=== PATIENT | female | born 1965 | race American Indian/Alaskan Native ===

== ENCOUNTER 2019-11-08 14:02 | Emergency (ER) | payer BC ==
--- NOTE | 2019-11-08 14:12 | Event Note ---
ED Screening Note ED Screening Note: Hx of RA, asthma, concern for asthma attack and sinus infection, recently moved from [place], has been without asthma medications This initial assessment/diagnostic orders/clinical plan/treatment(s) is/are subject to change based on patients health status, clinical progression and re- assessment by fellow clinical providers in the ED. Further treatment and workup at subsequent clinical providers discretion. Patient/guardian urged not to elope from the ED as their condition may be serious if not clinically assessed and managed. Initial orders include: to treatment room
[2019-11-08 14:14] VITALS: BP 146/84
[2019-11-08] MEDS ORDERED: dexAMETHasone 20 MG/5 ML VIAL IV ONE (15:24)
[2019-11-08] MEDS ORDERED: ALBUTEROL 2.5 MG/3 ML NEBU IH ONE (15:24)
[2019-11-08] MEDS ORDERED: IPRATROPIUM 0.02% NEBU 2.5 ML IH ONE (15:24)
[2019-11-08] MEDS ORDERED: SODIUM CHLORIDE 0.9% 1000 ML 1,000 ML IV ONE (15:24)
--- NOTE | 2019-11-08 15:35 | Emergency Department Report ---
Minor Respiratory - HPI Chief Complaint: Upper Respiratory Infection Stated Complaint: CELINE/SINUS INFECTION Time Seen by Provider: 11/08/19 15:18 Duration: 4 Days Minor Respiratory: Yes Rhinorrhea, Yes Able to Tolerate Fluids, Yes Cough, Yes Shortness of Breath, No Sore Throat, No Ear Pain, No Sick Contacts, No Hemoptysis, No Chest Pain, No Fever Other History: 54-year-old female presents to the emergency room complaining of sinus infection with lots of mucus. Patient complains of nasal congestion wheezing mild cough. Patient states that she has been using a [place] pot and has taken [id number] Zyrtec's x1 dose. Patient denies any headache but does admit to yellow mucus. Patient reports she is ran out of her Symbicort. ED Review of Systems ROS: Stated complaint: CELINE/SINUS INFECTION Other details as noted in HPI Comment: All other systems reviewed and negative ED Past Medical Hx - Past Medical History Hx Asthma: Yes Additional medical history: " BAD ALLERGY" - Surgical History Additional Surgical History: HYSTO - Social History Smoking Status: Never Smoker Substance Use Type: None - Medications Home Medications: Home Medications Medication Instructions Recorded Confirmed Last Taken Type Budesonide/Formoterol Fumarate 10.2 gm IH QDAY #1 hfa.aer.ad 11/08/19 Unknown Rx [Symbicort 160-4.5 Mcg Inhaler] predniSONE [Deltasone] 20 mg PO QDAY #4 tab 11/08/19 Unknown Rx Minor Respiratory Exam - Exam General: Vital signs noted. No distress. Alert and acting appropriately. HEENT: Yes Moist Mucous Membranes, No Pharyngeal Erythema, No Pharyngeal Exuda bobby, No Rhinorrhea, No Conjuctival Injection, No Frontal Tenderness, No Maxillary Tenderness Ear: Neither TM Bulge, Neither TM Erythema, Neither EAC Pain, Neither EAC Discharge Neck: Yes Supple, No Adenopathy Lungs: Yes Wheezes, Yes Ronchi Heart: Yes Regular, No Murmur Abdomen: Yes Normal Bowel Sounds, No Tenderness, No Peritoneal Signs Skin: No Rash, No Edema Neurologic: Alert and oriented, no deficits. Musculoskeletal: Unremarkable. ED Course Vital Signs 11/08/19 14:11 Temperature 98.3 F Pulse Rate 90 Respiratory 22 Rate Blood Pressure 146/84 O2 Sat by Pulse 98 Oximetry ED Medical Decision Making - Medical Decision Making 54-year-old female presents to the emergency room complaining of sinus infection with lots of mucus. Patient complains of nasal congestion wheezing mild cough. Patient states that she has been using a [place] pot and has taken [id number] Zyrtec's x1 dose. Patient denies any headache but does admit to yellow mucus. Patient reports she is ran out of her Symbicort. Orders have been placed for IV, normal saline, Atrovent 0.5 albuterol 5 dexamethasone 10 mg IV. Aspiratory therapy has been called. Critical care attestation.: If time is entered above; I have spent that time in minutes in the direct care of this critically ill patient, excluding procedure time. ED Disposition Clinical Impression: Asthma Disposition: DC-01 TO HOME OR SELFCARE Is pt being admited?: No Does the pt Need Aspirin: No Condition: Stable Instructions: Asthma (ED), Reactive Airways Disease (ED) Prescriptions: predniSONE [Deltasone] 20 mg PO QDAY #4 tab Budesonide/Formoterol Fumarate [Symbicort 160-4.5 Mcg Inhaler] 10.2 gm IH QDAY #1 hfa.aer.ad Referrals: JEFFREY ANGUIANO MD [Staff Physician] - 3-5 Days
== END 2019-11-08 17:27 | disposition home or self-care (01) ==
LOC: ED 14:02
DX: J45.909 Unspecified asthma, uncomplicated (principal)
CPT/HCPCS: 94640; 96374; 99283; J1100; J7030; 94644

== ENCOUNTER 2019-12-04 11:38 | Outpatient (CLI) | payer BC ==
[2019-12-04 12:38] LABS: Hemolysis Index 154
[2019-12-04 12:55] LABS: Alanine Aminotransferase TNR units/L (7-56); Albumin TNR g/dL (3.9-5); BUN/Creatinine Ratio TNR; Blood Urea Nitrogen TNR mg/dL (7-17); Calcium TNR mg/dL (8.4-10.2)
[2019-12-04 12:56] LABS: Chol/HDL Ratio TNR %; HDL Cholesterol TNR mg/dL (40-59); LDL Cholesterol,Direct TNR mg/dL (50-130)
[2019-12-04 13:12] LABS: Alanine Aminotransferase 14 units/L (7-56); Albumin 4.4 g/dL (3.9-5); BUN/Creatinine Ratio 19; Blood Urea Nitrogen 13 mg/dL (7-17); Calcium 9.9 mg/dL (8.4-10.2); HDL Cholesterol 80 mg/dL (40-59); Hemolysis Index 3; LDL Cholesterol,Direct 133 mg/dL (50-130)
== END 2019-12-04 11:39 | disposition home or self-care (01) ==
LOC: LAB 11:38
PROVIDERS: ATTEND Internal Medicine
DX: Z13.1 Encounter for screening for diabetes mellitus (principal); Z00.00 Encounter for general adult medical examination without abnormal findings; Z13.220 Encounter for screening for lipoid disorders
CPT/HCPCS: 36415; 80053; 80061; 82465; 82607; 83036; 83718; 83721; 84443; 84478

== ENCOUNTER 2020-07-05 14:09 | Emergency (ER) | payer BC ==
[2020-07-05 14:15] VITALS: BP 137/80
[2020-07-05] MEDS ORDERED: NEOMY 3.5 MG/POLY B 10,000 UNITS/HC 10 MG/ML (OTIC) SUSP 10 ML AU ONE (14:22)
--- NOTE | 2020-07-05 14:24 | Emergency Department Report ---
ED ENT HPI - General Chief complaint: Earache Stated complaint: EAR ACHE Time Seen by Provider: 07/05/20 14:18 Source: patient Mode of arrival: Ambulatory Limitations: No Limitations - History of Present Illness MD complaint: ear pain Onset/Timin -: week(s) Location: R ear, L ear Severity scale (0 -10): 10 Quality: stabbing Improves with: none Associated Symptoms: discharge from ear - Related Data Previous Rx's Medication Instructions Recorded Last Taken Type Budesonide/Formoterol Fumarate 10.2 gm IH QDAY #1 hfa.aer.ad 11/08/19 Unknown Rx [Symbicort 160-4.5 Mcg Inhaler] predniSONE [Deltasone] 20 mg PO QDAY #4 tab 11/08/19 Unknown Rx Allergies Allergy/AdvReac Type Severity Reaction Status Date / Time aspirin Allergy Unknown Verified 07/05/20 14:26 ED Dental HPI - General Chief complaint: Earache Stated complaint: EAR ACHE Time Seen by Provider: 07/05/20 14:18 Source: patient Mode of arrival: Ambulatory Limitations: No Limitations - Related Data Previous Rx's Medication Instructions Recorded Last Taken Type Budesonide/Formoterol Fumarate 10.2 gm IH QDAY #1 hfa.aer.ad 11/08/19 Unknown Rx [Symbicort 160-4.5 Mcg Inhaler] predniSONE [Deltasone] 20 mg PO QDAY #4 tab 11/08/19 Unknown Rx Allergies Allergy/AdvReac Type Severity Reaction Status Date / Time aspirin Allergy Unknown Verified 07/05/20 14:26 ED Review of Systems ROS: Stated complaint: EAR ACHE Other details as noted in HPI Comment: All other systems reviewed and negative ED Past Medical Hx - Past Medical History Previous Medical History?: Yes Hx Asthma: Yes Additional medical history: " BAD ALLERGY" - Surgical History Past Surgical History?: Yes Additional Surgical History: HYSTO - Social History Smoking Status: Current Some Day Smoker - Medications Home Medications: Home Medications Medication Instructions Recorded Confirmed Last Taken Type Budesonide/Formoterol Fumarate 10.2 gm IH QDAY #1 hfa.aer.ad 11/08/19 Unknown Rx [Symbicort 160-4.5 Mcg Inhaler] predniSONE [Deltasone] 20 mg PO QDAY #4 tab 11/08/19 Unknown Rx ED Physical Exam - General Limitations: No Limitations General appearance: alert, in no apparent distress - Head Head exam: Present: atraumatic, normocephalic - Eye Eye exam: Present: normal appearance - ENT ENT exam: Present: mucous membranes moist - Neck Neck exam: Present: normal inspection - Cardiovascular Cardiovascular Exam: Present: regular rate, normal rhythm. Absent: systolic murmur, diastolic murmur, rubs, gallop - Back Exam Back exam: Present: full ROM - Neurological Exam Neurological exam: Present: alert, oriented X3, normal gait - Psychiatric Psychiatric exam: Present: normal affect, normal mood - Skin Skin exam: Present: warm, dry, intact, normal color. Absent: rash ED Course Vital Signs 07/05/20 14:12 Temperature 98 F Pulse Rate 83 Respiratory 20 Rate Blood Pressure 137/80 O2 Sat by Pulse 99 Oximetry - Procedure Description Procedures done: Ear wick placed in right ear with Cortisporin eardrops Critical care attestation.: If time is entered above; I have spent that time in minutes in the direct care of this critically ill patient, excluding procedure time. ED Disposition Clinical Impression: Otitis externa of both ears Disposition: DC-01 TO HOME OR SELFCARE Is pt being admited?: No Does the pt Need Aspirin: No Condition: Stable Instructions: Otitis Externa (ED) Additional Instructions: Use eardrops 4 drops 3 times a day as prescribed. Remove ear wick in 3 days continue with antibiotics to the ear for 10 days. Take ibuprofen or Tylenol for pain management. Be sure to dry your ears after washing or getting fluids in him. Referrals: THUAN LOPES MD [Staff Physician] - 3-5 Days
== END 2020-07-05 15:35 | disposition home or self-care (01) ==
LOC: ED 14:09
DX: H60.93 Unspecified otitis externa, bilateral (principal); F17.200 Nicotine dependence, unspecified, uncomplicated; J45.909 Unspecified asthma, uncomplicated; Z90.710 Acquired absence of both cervix and uterus; Z88.6 Allergy status to analgesic agent; Z79.899 Other long term (current) drug therapy
CPT/HCPCS: 99282

== ENCOUNTER 2021-02-11 08:27 | Outpatient (CLI) | payer BC ==
[2021-02-11 09:04] LABS: Basophils # (Auto) 0.1 K/mm3 (0.0-0.1); Basophils % (Auto) 1.3 % (0.0-1.8); Eosinophils # (Auto) 0.3 K/mm3 (0.0-0.4); Hematocrit 36.2 % (30.3-42.9); Hemoglobin 12.4 gm/dl (10.1-14.3); Lymphocytes # (Auto) 1.5 K/mm3 (1.2-5.4); Lymphocytes % (Auto) 38.2 % (13.4-35.0); Mean Corpuscular HGB Conc 34 % (30-34); Mean Corpuscular Volume 86 fl (79-97); Monocytes # (Auto) 0.3 K/mm3 (0.0-0.8); Monocytes % (Auto) 8.6 % (0.0-7.3); Platelet Count 250 K/mm3 (140-440); Red Blood Count 4.24 M/mm3 (3.65-5.03); Red Cell Distribution Width 13.6 % (13.2-15.2)
[2021-02-11 09:24] LABS: Alanine Aminotransferase 16 units/L (7-56); Albumin 4.4 g/dL (3.9-5); Blood Urea Nitrogen 18 mg/dL (7-17); Calcium 9.2 mg/dL (8.4-10.2); HDL Cholesterol 79 mg/dL (40-59); Hemolysis Index 2; LDL Cholesterol,Direct 115 mg/dL (50-130)
[2021-02-11 09:30] LABS: BUN/Creatinine Ratio 26
[2021-02-14 10:52] LABS: Vitamin D, 25-OH, D2 <4 ng/mL
== END 2021-02-11 08:28 | disposition home or self-care (01) ==
LOC: LAB 08:27
PROVIDERS: ATTEND Internal Medicine
DX: Z13.29 Encounter for screening for other suspected endocrine disorder (principal); Z00.00 Encounter for general adult medical examination without abnormal findings; R73.03 Prediabetes; E78.5 Hyperlipidemia, unspecified; E66.09 Other obesity due to excess calories; E55.9 Vitamin D deficiency, unspecified
CPT/HCPCS: 36415; 80053; 80061; 82306; 83036; 84443; 85025

== ENCOUNTER 2021-06-04 15:41 | Emergency (ER) | payer BC ==
--- NOTE | 2021-06-04 16:56 | Emergency Department Report ---
ED General Adult HPI - General Chief complaint: Earache Stated complaint: ear pain Time Seen by Provider: 06/04/21 16:12 Source: patient Mode of arrival: Ambulatory Limitations: No Limitations - History of Present Illness Initial comments: 56-year-old -Maldivian female patient with history of asthma presents with complaints of left ear pain x1 week. She rates her pain as 8/10 in severity and states she does have some decreased hearing. Patient states she used a earwax drain kit last night and got a great deal of wax out of her ear, however now today there is white/yellowish liquid draining from her ear. No headache, throat pain, recent swimming, or fever/chills per patient. Ibuprofen helps some with her pain -: Gradual - Related Data Previous Rx's Medication Instructions Recorded Last Taken Type Budesonide/Formoterol Fumarate 10.2 gm IH QDAY #1 hfa.aer.ad 11/08/19 Unknown Rx [Symbicort 160-4.5 Mcg Inhaler] predniSONE [Deltasone] 20 mg PO QDAY #4 tab 11/08/19 Unknown Rx Amoxicillin/Potassium Clav 1 each PO BID 10 Days #20 tablet 06/04/21 Unknown Rx [Augmentin 875-125 Tablet] Ibuprofen [Motrin 800 MG tab] 800 mg PO Q8HR PRN #20 tablet 06/04/21 Unknown Rx Ofloxacin 0.3% [Floxin 0.3% Otic] 10 drops QDAY 7 Days #1 bottle 06/04/21 Unk nown Rx Allergies Allergy/AdvReac Type Severity Reaction Status Date / Time aspirin Allergy Unknown Verified 07/05/20 14:26 ED Review of Systems ROS: Stated complaint: ear pain Other details as noted in HPI Constitutional: denies: chills, fever ENT: ear pain. denies: throat pain Respiratory: denies: cough Skin: denies: change in color ED Past Medical Hx - Past Medical History Hx Asthma: Yes Additional medical history: " BAD ALLERGY" - Surgical History Additional Surgical History: HYSTO - Social History Smoking Status: Current Some Day Smoker - Medications Home Medications: Home Medications Medication Instructions Recorded Confirmed Last Taken Type Budesonide/Formoterol Fumarate 10.2 gm IH QDAY #1 hfa.aer.ad 11/08/19 Unknown Rx [Symbicort 160-4.5 Mcg Inhaler] predniSONE [Deltasone] 20 mg PO QDAY #4 tab 11/08/19 Unknown Rx Amoxicillin/Potassium Clav 1 each PO BID 10 Days #20 tablet 06/04/21 Unknown Rx [Augmentin 875-125 Tablet] Ibuprofen [Motrin 800 MG tab] 800 mg PO Q8HR PRN #20 tablet 06/04/21 Unknown Rx Ofloxacin 0.3% [Floxin 0.3% Otic] 10 drops QDAY 7 Days #1 bottle 06/04/21 Unknown Rx ED Physical Exam - General Limitations: No Limitations General appearance: alert, in no apparent distress - Head Head exam: Present: atraumatic, normocephalic - Eye Eye exam: Present: normal appearance. Absent: scleral icterus - Expanded ENT Exam Expanded TM/Canal exam: Canal Discharge: Left TM, Canal Tenderness: Left TM (With moderate swelling of the canal noted) - Neck Neck exam: Absent: lymphadenopathy - Respiratory Respiratory exam: Absent: respiratory distress - Cardiovascular Cardiovascular Exam: Present: regular rate - Neurological Exam Neurological exam: Present: alert, oriented X3 - Psychiatric Psychiatric exam: Present: normal affect, normal mood - Skin Skin exam: Present: warm, dry, intact, normal color. Absent: rash ED Course Vital Signs 06/04/21 06/04/21 17:08 18:53 Temperature 97.6 F Pulse Rate 74 74 Respiratory 18 Rate Blood Pressure 121/85 Blood Pressure 121/85 [Right] O2 Sat by Pulse 100 100 Oximetry ED Medical Decision Making - Medical Decision Making 56-year-old -Maldivian female patient with history of asthma presents with complaints of left ear pain x1 week. She rates her pain as 8/10 in severity and states she does have some decreased hearing. Patient states she used a earwax drain kit last night and got a great deal of wax out of her ear, however now today there is white/yellowish liquid draining from her ear. No headache, throat pain, recent swimming, or fever/chills per patient. Ibuprofen helps some with her pain Otitis externa noted on exam, however I am unable to visualize the tympanic membrane. Given this, will cover for otitis media given patient's level of pain with Augmentin. Ofloxacin given for otitis externa. Ibuprofen for pain. She is well-appearing, her vitals are within normal limits, she is stable for discharge home. Recommend follow-up with PCP in 3 to 5 days. Strict return precautions were discussed in detail patient verbalizes understanding. Critical care attestation.: If time is entered above; I have spent that time in minutes in the direct care of this critically ill patient, excluding procedure time. ED Disposition Clinical Impression: Otitis media Disposition: HOME / SELF CARE / HOMELESS Is pt being admited?: No Condition: Stable Instructions: Ear Drops, Adult, Otitis Media, Adult, [id number], Otitis Externa Prescriptions: Amoxicillin/Potassium Clav [Augmentin 875-125 Tablet] 1 each PO BID 10 Days #20 tablet Ofloxacin 0.3% [Floxin 0.3% Otic] 10 drops QDAY 7 Days #1 bottle Ibuprofen [Motrin 800 MG tab] 800 mg PO Q8HR PRN #20 tablet PRN Reason: pain Referrals: PRIMARY CARE, [Primary Care Provider] - 3-5 Days [facility] [Provider Group] - 3-5 Days Forms: Work/School Release Form(ED)
[2021-06-04 18:52] VITALS: BP 121/85
== END 2021-06-04 17:30 | disposition home or self-care (01) ==
LOC: ED 15:41
DX: H66.92 Otitis media, unspecified, left ear (principal); J45.909 Unspecified asthma, uncomplicated; F17.200 Nicotine dependence, unspecified, uncomplicated; Z88.6 Allergy status to analgesic agent; Z79.899 Other long term (current) drug therapy
CPT/HCPCS: 99282

== ENCOUNTER 2021-08-24 08:44 | Emergency (ER) | payer BC, OTHER ==
[2021-08-24 08:49] VITALS: BP 160/92
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
== END 2021-08-24 10:30 | disposition home or self-care (01) ==
LOC: ED 08:44
DX: S16.1XXA Strain of muscle, fascia and tendon at neck level, initial encounter (principal); S29.012A Strain of muscle and tendon of back wall of thorax, initial encounter; Z88.6 Allergy status to analgesic agent; Z79.899 Other long term (current) drug therapy; V89.2XXA Person injured in unspecified motor-vehicle accident, traffic, initial encounter; Y93.89 Activity, other specified; Y92.488 Other paved roadways as the place of occurrence of the external cause; Y99.8 Other external cause status
CPT/HCPCS: 99283